=== PATIENT | female | born 1935 | race Caucasian/White ===

== ENCOUNTER → 2016-03-29 | Outpatient (CLI) | payer MEDICARE, BC ==
--- NOTE | 2016-03-31 08:12 | MM ---
Reason for exam: screening (asymptomatic). Last mammogram was performed 1 year and 2 months ago. History: Patient is postmenopausal. Took hormonal contraceptives for 7 years beginning at age 27. Took estrogen for 5 years. Physical Findings: A clinical breast exam by your physician is recommended on an annual basis and results should be correlated with mammographic findings. MG Screening Mammo w CAD Bilateral CC and MLO view(s) were taken. Prior study comparison: January 21, 2015, left breast MG 3d work up w/cad LT. January 15, 2015, bilateral MG screening mammo w CAD. January 14, 2014, bilateral MG screening mammo w CAD. The breast tissue is heterogeneously dense. This may lower the sensitivity of mammography. No significant changes when compared with prior studies. ASSESSMENT: Negative, BI-RAD 1 RECOMMENDATION: Routine screening mammogram of both breasts in 1 year.
== END ==
LOC: RADMAMWWP 14:09
PROVIDERS: ATTEND Family Medicine
DX: Z12.31 Encounter for screening mammogram for malignant neoplasm of breast (principal)

== ENCOUNTER → 2018-09-27 | Outpatient (CLI) | payer MEDICARE ==
--- NOTE | 2018-09-30 13:29 | MM ---
Reason for exam: screening (asymptomatic). Last mammogram was performed 2 years and 6 months ago. History: Patient is postmenopausal. Took hormonal contraceptives for 7 years beginning at age 27. Took estrogen for 5 years. Physical Findings: A clinical breast exam by your physician is recommended on an annual basis and results should be correlated with mammographic findings. MG Screening Mammo w CAD Bilateral CC and MLO view(s) were taken. Prior study comparison: March 29, 2016, bilateral MG screening mammo w CAD. January 21, 2015, left breast MG 3d work up w/cad LT. The breast tissue is heterogeneously dense. This may lower the sensitivity of mammography. No significant changes when compared with prior studies. ASSESSMENT: Benign, BI-RAD 2 RECOMMENDATION: Routine screening mammogram of both breasts in 1 year.
== END | disposition home or self-care (01) ==
LOC: RADMAMWWP 10:51
PROVIDERS: ATTEND Family Medicine
DX: Z12.31 Encounter for screening mammogram for malignant neoplasm of breast (principal)
CPT/HCPCS: 77067

== ENCOUNTER 2020-02-19 07:15 | Observation (INO) | payer MEDICARE ==
[2020-02-19] MEDS ORDERED: ASPIRIN 81 MG PO STA (07:33)
[2020-02-19] MEDS ORDERED: NITROGLYCERIN SL TABS 0.4 MG TAB SUBLINGUAL STA (07:33)
--- NOTE | 2020-02-19 07:35 | ED ---
General Adult HPI - General Chief complaint: Chest Pain Stated complaint: chest pain Time Seen by Provider: 02/19/20 07:22 Source: patient, RN notes reviewed Mode of arrival: ambulatory Limitations: no limitations - History of Present Illness Initial comments: Patient is a pleasant 84-year-old female presenting to the emergency Department with complaints of chest discomfort. Onset of symptoms was yesterday. Patient states it just hurts. Discomfort is somewhat severe. Discomfort does increase somewhat with positions. Discomfort is the sternal region with a little bit of radiation towards the sides. Patient denies back pain or radiation towards the back. No leg pain or leg swelling. No nausea. No diaphoresis. Patient states at times there is mild dyspnea. - Related Data Home Medications Medication Instructions Recorded Confirmed Alendronate Sodium 70 mg PO WE 04/03/15 02/19/20 Brimonidine Tartrate [Alphagan P 1 drop BOTH EYES BID 04/03/15 02/19/20 0.2% Ophth Soln] Calcitonin,[place],Synthetic 1 spray NASAL DAILY 04/03/15 02/19/20 [Miacalcin] Latanoprost [Xalatan 0.005%] 1 drop BOTH EYES HS 04/03/15 02/19/20 Levothyroxine Sodium [Synthroid] 25 mcg PO DAILY 04/03/15 02/19/20 Pravastatin Sodium [Pravachol] 20 mg PO HS 04/03/15 02/19/20 Spironolactone [Aldactone] 25 mg PO DAILY 04/03/15 02/19/20 prednisoLONE ACETATE 1% OPHTH 1 drop BOTH EYES DAILY 04/03/15 02/19/20 [Pred Forte 1%] Mic/D3/Mag11/Zinc/Slitter Operator/Junito/Bor 1 tab PO DAILY 02/19/20 02/19/20 [Caltrate 600+D Plus Tablet] Cholecalciferol [Vitamin D3 (25 1,000 unit PO DAILY 02/19/20 02/19/20 Mcg = 1000 Iu)] Dorzolamide-Timol 2.23%/0.68% 1 drop BOTH EYES BID 02/19/20 02/19/20 [Cosopt] [place] 500 mg PO DAILY 02/19/20 02/19/20 Losartan Potassium 100 mg PO DAILY 02/19/20 02/19/20 Magnesium Oxide 400 mg PO DAILY 02/19/20 02/19/20 Multivitamins, Thera [Multivitamin 1 tab PO DAILY 02/19/20 02/19/20 (formulary)] amLODIPine [Norvasc] 10 mg PO DAILY 02/19/20 02/19/20 Allergies Allergy/AdvReac Type Severity Reaction Status Date / Time No Known Allergies Allergy Verified 02/19/20 08:29 Review of Systems ROS Statement: Those systems with pertinent positive or pertinent negative responses have been documented in the HPI. ROS Other: All systems not noted in ROS Statement are negative. Constitutional: Denies: fever Eyes: Denies: eye pain ENT: Denies: ear pain Respiratory: Denies: cough Cardiovascular: Reports: as per HPI, chest pain Endocrine: Denies: fatigue Gastrointestinal: Denies: abdominal pain Genitourinary: Denies: dysuria Musculoskeletal: Denies: back pain Skin: Denies: rash Neurological: Denies: weakness Past Medical History Past Medical History: Hyperlipidemia, Hypertension, Thyroid Disorder Additional Past Medical History / Comment(s): glaucoma History of Any Multi-Drug Resistant Organisms: None Reported Past Surgical History: Appendectomy Past Psychological History: No Psychological Hx Reported Smoking Status: Former smoker Past Alcohol Use History: None Reported Past Drug Use History: None Reported General Exam Limitations: no limitations General appearance: alert, in no apparent distress Head exam: Present: normocephalic Eye exam: Present: normal appearance Neck exam: Present: normal inspection Respiratory exam: Present: normal lung sounds bilaterally, chest wall tenderness (Mild tenderness lower sternal region) Cardiovascular Exam: Present: regular rate, normal rhythm Expanded Peripheral pulses: 2+: Radial (R), Radial (L), Posterior Tibialis (R), Posterior Tibialis (L) GI/Abdominal exam: Present: soft. Absent: tenderness Extremities exam: Present: normal inspection. Absent: pedal edema, calf tenderness Neurological exam: Present: alert Psychiatric exam: Present: normal affect, normal mood Skin exam: Present: normal color Course Vital Signs 02/19/20 02/19/20 07:19 08:22 Temperature 98.3 F Pulse Rate 87 79 Respiratory 18 18 Rate Blood Pressure 149/88 131/67 O2 Sat by Pulse 97 99 Oximetry EKG Findings - EKG Comments: EKG Findings:: Normal sinus rhythm 86. UT 124. QRS 86. QT 362. QTC 433. Normal axis. Normal QRS. No acute ST change. Medical Decision Making - Medical Decision Making Patient reevaluated and is somewhat improved. Patient updated on results and plan. Dr. Valentin has been paged for admission covering for Dr. Ryan. - Lab Data Result diagrams: 02/19/20 07:44 02/19/20 08:15 Lab Results 02/19/20 02/19/20 02/19/20 Range/Units 07:44 07:44 08:15 WBC 9.0 (3.8-10.6) k/uL RBC 5.06 (3.80-5.40) m/uL Hgb 15.6 (11.4-16.0) gm/dL Hct 45.1 (34.0-46.0) % MCV 89.2 (80.0-100.0) fL MCH 30.8 (25.0-35.0) pg MCHC 34.5 (31.0-37.0) g/dL RDW 12.6 (11.5-15.5) % Plt Count 325 (150-450) k/uL MPV 7.6 Neutrophils % 76 % Lymphocytes % 13 % Monocytes % 7 % Eosinophils % 1 % Basophils % 2 % Neutrophils # 6.8 (1.3-7.7) k/uL Lymphocytes # 1.2 (1.0-4.8) k/uL Monocytes # 0.7 (0-1.0) k/uL Eosinophils # 0.1 (0-0.7) k/uL Basophils # 0.2 (0-0.2) k/uL PT 9.3 (9.0-12.0) sec INR 0.9 (<1.2) APTT 22.9 (22.0-30.0) sec D-Dimer 0.33 (<0.60) mg/L FEU Sodium 131 L (137-145) mmol/L Potassium 4.7 (3.5-5.1) mmol/L Chloride 101 (98-107) mmol/L Carbon Dioxide 24 (22-30) mmol/L Anion Gap 6 mmol/L BUN 10 (7-17) mg/dL Creatinine 0.64 (0.52-1.04) mg/dL Est GFR (CKD-EPI)AfAm >90 (>60 ml/min/1.73 sqM) Est GFR (CKD-EPI)NonAf 81 (>60 ml/min/1.73 sqM) Glucose 123 H (74-99) mg/dL Calcium 9.5 (8.4-10.2) mg/dL Magnesium 2.0 (1.6-2.3) mg/dL Total Bilirubin 0.7 (0.2-1.3) mg/dL AST 23 (14-36) U/L ALT 15 (4-34) U/L Alkaline Phosphatase 88 (38-126) U/L Troponin I (0.000-0.034) ng/mL Total Protein 7.2 (6.3-8.2) g/dL Albumin 4.3 (3.5-5.0) g/dL 02/19/20 Range/Units 08:15 WBC (3.8-10.6) k/uL RBC (3.80-5.40) m/uL Hgb (11.4-16.0) gm/dL Hct (34.0-46.0) % MCV (80.0-100.0) fL MCH (25.0-35.0) pg MCHC (31.0-37.0) g/dL RDW (11.5-15.5) % Plt Count (150-450) k/uL MPV Neutrophils % % Lymphocytes % % Monocytes % % Eosinophils % % Basophils % % Neutrophils # (1.3-7.7) k/uL Lymphocytes # (1.0-4.8) k/uL Monocytes # (0-1.0) k/uL Eosinophils # (0-0.7) k/uL Basophils # (0-0.2) k/uL PT (9.0-12.0) sec INR (<1.2) APTT (22.0-30.0) sec D-Dimer (<0.60) mg/L FEU Sodium (137-145) mmol/L Potassium (3.5-5.1) mmol/L Chloride (98-107) mmol/L Carbon Dioxide (22-30) mmol/L Anion Gap mmol/L BUN (7-17) mg/dL Creatinine (0.52-1.04) mg/dL Est GFR (CKD-EPI)AfAm (>60 ml/min/1.73 sqM) Est GFR (CKD-EPI)NonAf (>60 ml/min/1.73 sqM) Glucose (74-99) mg/dL Calcium (8.4-10.2) mg/dL Magnesium (1.6-2.3) mg/dL Total Bilirubin (0.2-1.3) mg/dL AST (14-36) U/L ALT (4-34) U/L Alkaline Phosphatase (38-126) U/L Troponin I <0.012 (0.000-0.034) ng/mL Total Protein (6.3-8.2) g/dL Albumin (3.5-5.0) g/dL - Radiology Data Radiology results: image reviewed (Chest x-ray shows hyperinflation. No acute process.) Disposition Clinical Impression: Chest pain Disposition: ADMITTED IP TO THIS HOSP Is patient prescribed a controlled substance at d/c from ED?: No Referrals: Emma Ryan DO [Primary Care Provider] - 1-2 days Decision Time: 09:04
[2020-02-19 07:56] LABS: Basophils # (A) 0.2 k/uL (0-0.2); Basophils % (A) 2 %; Eosinophils # (A) 0.1 k/uL (0-0.7); Eosinophils % (A) 1 %; HCT 45.1 % (34.0-46.0); HGB 15.6 gm/dL (11.4-16.0); Lymphocytes # (A) 1.2 k/uL (1.0-4.8); Lymphocytes % (A) 13 %; MCH 30.8 pg (25.0-35.0); MCHC 34.5 g/dL (31.0-37.0); MCV 89.2 fL (80.0-100.0); Mean Platelet Volume 7.6; Monocytes # (A) 0.7 k/uL (0-1.0); Monocytes % (A) 7 %; Neutrophils # (A) 6.8 k/uL (1.3-7.7); Neutrophils % (A) 76 %; Platelet Count 325 k/uL (150-450); RBC 5.06 m/uL (3.80-5.40); RDW 12.6 % (11.5-15.5)
[2020-02-19 08:09] LABS: D-Dimer 0.33 mg/L FEU (<0.60); INR 0.9 (<1.2); Partial Thromboplastin Time 22.9 sec (22.0-30.0); Prothrombin Time 9.3 sec (9.0-12.0)
--- NOTE | 2020-02-19 08:15 | XR ---
EXAMINATION TYPE: XR chest 2V DATE OF EXAM: 02/19/2020 COMPARISON: None HISTORY: 84-year-old female with chest pain TECHNIQUE: PA and lateral views FINDINGS: The cardiomediastinal silhouette and pulmonary vasculature are within normal limits. Atherosclerotic calcifications throughout the thoracic aorta. Mild hyperinflation. Some strandy atelectasis at the le ft base. No consolidation or pleural effusion. Grade 1 retrolisthesis at the thoracolumbar junction l ikely on a degenerative basis. IMPRESSION: Hyperinflation may relate to depth of inspiration or underlying emphysema. Clinically correlate. No a cute process seen.
[2020-02-19 08:36] LABS: ALT 15 U/L (4-34); AST 23 U/L (14-36); African American GFR (CKD) >90 (>60 ml/min/1.73 sqM); Albumin 4.3 g/dL (3.5-5.0); Alkaline Phosphatase 88 U/L (38-126); Anion Gap 6 mmol/L; Blood Urea Nitrogen 10 mg/dL (7-17); Calcium 9.5 mg/dL (8.4-10.2); Carbon Dioxide 24 mmol/L (22-30); Chloride 101 mmol/L (98-107); Glucose 123 mg/dL (74-99); Non-African American GFR(CKD) 81 (>60 ml/min/1.73 sqM); Potassium 4.7 mmol/L (3.5-5.1); Sodium 131 mmol/L (137-145); Total Bilirubin 0.7 mg/dL (0.2-1.3); Total Protein 7.2 g/dL (6.3-8.2)
[2020-02-19] MEDS ORDERED: NITROGLYCERIN SL TABS 0.4 MG TAB SUBLINGUAL PRN (09:04)
[2020-02-19] MEDS ORDERED: ACETAMINOPHEN TAB 325 MG TAB PO PRN (10:32)
[2020-02-19] MEDS ORDERED: IBUPROFEN 400 MG TAB PO STA (10:48)
--- NOTE | 2020-02-19 11:01 | P.CRDCN ---
History of Present Illness Consult date: 02/19/20 History of present illness: CHIEF COMPLAINT: Chest pain HISTORY OF PRESENT ILLNESS: This is 84-year-old female with a past medical history significant for hypertension and hyperlipidemia. Patient does not follow with a information assurance. We have been asked to see the patient in consultation for chest pain. Patient examined this morning at the bedside in the observation unit. Patient states she began having some chest discomfort yesterday. When asked where her pain was patient is pointing near her xiphoid process. The pa tient does have tenderness with palpation of the lower sternal region. She states the pain did not radiate anywhere. She states the pain is worse with deep inspiration. She states she has some associated shortness of breath with the pain. She states she did not sleep much last night because the pain was worse when she laid on her back or on her right side so she spent most of the night awake. DIAGNOSTICS: EKG reveals sinus rhythm without acute signs of ischemia Chest xray hyperinflation may relate to depth of inspiration or underlying emphysema. No acute process seen. Laboratory data: WBC 9.0. Hemoglobin 15.6. Platelet count 325. D-dimer 0.33. Sodium 131. Potassium 4.7. BUN 10. Creatinine 0.64. Magnesium 2.0. Troponin negative 1. Current home cardiac medications include Norvasc 10 mg daily, spironolactone 25 mg daily, pravastatin 20 mg daily, and losartan 100 mg daily REVIEW OF SYSTEMS: At the time of my exam: CONSTITUTIONAL: Denies fever or chills. HEENT: Denies blurred vision, vision changes, or eye pain. Denies hemoptysis CARDIOVASCULAR: Denies chest pain, orthopnea, PND or palpitations RESPIRATORY: No shortness of breath. GASTROINTESTINAL: Denies abdominal pain. Denies nausea or vomiting. HEMATOLOGIC: Denies bleeding disorders. GENITOURINARY: Denies any blood in urine. SKIN: Denies pruitis. Denies rash. PHYSICAL EXAM: VITAL SIGNS: Reviewed. GENERAL: Well-developed in no acute distress. HEENT: Head is normocephalic. Pupils are equal, round. Sclerae anicteric. Mucous membranes of the mouth are moist. Neck supple. No JVD or thyromegaly LUNGS: Respirations even and unlabored. Lungs essentially clear to auscultation bilaterally. HEART: Regular rate and rhythm. S1 and S2 heard. Patient with discomfort upon palpation of mid lower region of chest wall. ABDOMEN: Soft. Nondistended. Nontender. EXTREMITIES: Normal range of motion. No clubbing or cyanosis. Peripheral pulses intact. No lower extremity edema NEUROLOGIC: Awake and alert. Oriented x 3. ASSESSMENT: Chest pain, atypical and reproducible Hypertension Hyperlipidemia Hypothyroidism Remote history of nicotine dependence PLAN: Continue to trend troponin levels Obtain 2-D echo to assess cardiac structure and function Resume home cardiac medications Further recommendations pending patient's course Nurse practitioner note has been reviewed by physician. Signing provider agrees with the documented findings, assessment, and plan of care. Past Medical History Past Medical History: Hyperlipidemia, Hypertension, Thyroid Disorder Additional Past Medical History / Comment(s): glaucoma History of Any Multi-Drug Resistant Organisms: None Reported Past Surgical History: Appendectomy Past Anesthesia/Blood Transfusion Reactions: No Reported Reaction Past Psychological History: No Psychological Hx Reported Smoking Status: Former smoker Past Alcohol Use History: None Reported Past Drug Use History: None Reported Medications and Allergies Home Medications Medication Instructions Recorded Confirmed Type Alendronate Sodium 70 mg PO WE 04/03/15 02/19/20 History Brimonidine Tartrate [Alphagan P 1 drop BOTH EYES BID 04/03/15 02/19/20 History 0.2% Ophth Soln] Calcitonin,[place],Synthetic 1 spray NASAL DAILY 04/03/15 02/19/20 History [Miacalcin] Latanoprost [Xalatan 0.005%] 1 drop BOTH EYES HS 04/03/15 02/19/20 History Levothyroxine Sodium [Synthroid] 25 mcg PO DAILY 04/03/15 02/19/20 History Pravastatin Sodium [Pravachol] 20 mg PO HS 04/03/15 02/19/20 History Spironolactone [Aldactone] 25 mg PO DAILY 04/03/15 02/19/20 History prednisoLONE ACETATE 1% OPHTH 1 drop BOTH EYES DAILY 04/03/15 02/19/20 History [Pred Forte 1%] Mic/D3/Mag11/Zinc/Route Delivery Driver/Junito/Bor 1 tab PO DAILY 02/19/20 02/19/20 History [Caltrate 600+D Plus Tablet] Cholecalciferol [Vitamin D3 (25 1,000 unit PO DAILY 02/19/20 02/19/20 History Mcg = 1000 Iu)] Dorzolamide-Timol 2.23%/0.68% 1 drop BOTH EYES BID 02/19/20 02/19/20 History [Cosopt] [place] 500 mg PO DAILY 02/19/20 02/19/20 History Losartan Potassium 100 mg PO DAILY 02/19/20 02/19/20 History Magnesium Oxide 400 mg PO DAILY 02/19/20 02/19/20 History Multivitamins, Thera [Multivitamin 1 tab PO DAILY 02/19/20 02/19/20 History (formulary)] amLODIPine [Norvasc] 10 mg PO DAILY 02/19/20 02/19/20 History Allergies Allergy/AdvReac Type Severity Reaction Status Date / Time No Known Allergies Allergy Verified 02/19/20 08:29 Physical Exam Vitals: Vital Signs Temp Pulse Pulse Resp BP BP Pulse Ox 02/19/20 10:21 86 16 02/19/20 09:42 97.7 F 86 16 165/72 97 02/19/20 09:20 98 F 85 18 152/71 99 02/19/20 08:22 79 18 131/67 99 02/19/20 07:19 98.3 F 87 18 149/88 97 Intake and Output 02/18/20 02/19/20 02/19/20 22:59 06:59 14:59 Other: Voiding Method Toilet Weight 58.513 kg Results 02/19/20 07:44 02/19/20 08:15 Cardiac Enzymes 02/19/20 02/19/20 Range/Units 08:15 08:15 AST 23 (14-36) U/L Troponin I <0.012 (0.000-0.034) ng/mL Coagulation 02/19/20 Range/Units 07:44 PT 9.3 (9.0-12.0) sec APTT 22.9 (22.0-30.0) sec CBC 02/19/20 Range/Units 07:44 WBC 9.0 (3.8-10.6) k/uL RBC 5.06 (3.80-5.40) m/uL Hgb 15.6 (11.4-16.0) gm/dL Hct 45.1 (34.0-46.0) % Plt Count 325 (150-450) k/uL Comprehensive Metabolic Panel 02/19/20 Range/Units 08:15 Sodium 131 L (137-145) mmol/L Potassium 4.7 (3.5-5.1) mmol/L Chloride 101 (98-107) mmol/L Carbon Dioxide 24 (22-30) mmol/L BUN 10 (7-17) mg/dL Creatinine 0.64 (0.52-1.04) mg/dL Glucose 123 H (74-99) mg/dL Calcium 9.5 (8.4-10.2) mg/dL AST 23 (14-36) U/L ALT 15 (4-34) U/L Alkaline Phosphatase 88 (38-126) U/L Total Protein 7.2 (6.3-8.2) g/dL Albumin 4.3 (3.5-5.0) g/dL Current Medications Generic Name Dose Route Start Last Admin Trade Name Freq PRN Reason Stop Dose Admin Acetaminophen 650 mg 02/19/20 10:32 Acetaminophen Tab 325 Mg Tab PO Q6HR PRN Fever and/ or Pain Aspirin 325 mg 02/20/20 09:00 Aspirin 325 Mg Tab PO DAILY TWIN Nitroglycerin 0.4 mg 02/19/20 09:04 Nitroglycerin Sl Tabs 0.4 Mg Tab SUBLINGUAL Q5M PRN Chest Pain Nitroglycerin 0.5 inch 02/19/20 12:00 Nitroglycerin Oint 1 Inch/Gm Packet TOPICAL Q6HR TWIN Pantoprazole Sodium 40 mg 02/19/20 11:00 Pantoprazole 40 Mg/10 Ml Vial IVP DAILY TWIN Sodium Chloride 10 ml 02/19/20 21:00 Sodium Chloride 0.9% Flush 10 Ml Syringe IV BID TWIN Intake and Output 02/18/20 02/19/20 02/19/20 22:59 06:59 14:59 Other: Voiding Method Toilet Weight 58.513 kg Patient Weight 02/20/20 06:59 Weight 58.513 kg 02/19/20 07:44 02/19/20 08:15
[2020-02-19] MEDS: LEVOTHYROXINE 25 MCG TAB PO SCH (11:23)
[2020-02-19] MEDS: BRIMONIDINE TARTRATE 0.2% DROPS 5 ML BTL BOTH EYES SCH ×2 (11:23→20:50)
[2020-02-19] MEDS: LOSARTAN 50 MG TAB PO SCH (11:23)
[2020-02-19] MEDS: DORZOLAMIDE-TIMOLOL 2.23%/0.68 10ML BTL BOTH EYES SCH ×2 (11:23→20:49)
[2020-02-19] MEDS: SPIRONOLACTONE 25 MG TAB PO SCH (11:24)
[2020-02-19] MEDS: prednisoLONE ACETATE 1% OPHTH DROPS 5 ML BTL BOTH EYES SCH (11:24)
[2020-02-19] MEDS: MAGNESIUM OXIDE 400 MG TAB PO SCH (11:24)
[2020-02-19] MEDS: PANTOPRAZOLE 40 MG/10 ML VIAL IVP SCH (11:27)
--- NOTE | 2020-02-19 11:36 | ECHOF ---
Referral Reason:chest pain MEASUREMENTS -------- HEIGHT: 157.5 cm WEIGHT: 58.5 kg BP: RVIDd: 2.6 cm (< 3.3) IVSd: 1.1 cm (0.6 - 1.1) LVIDd: 2.7 cm (3.9 - 5.3) LVPWd: 1.3 cm (0.6 - 1.1) IVSs: 1.8 cm LVIDs: 1.1 cm LVPWs: 1.4 cm LAESV Index (A-L): 22.34 ml/m Ao Diam: 2.0 cm (2.0 - 3.7) AV Cusp: 1.3 cm (1.5 - 2.6) LA Diam: 2.7 cm (2.7 - 3.8) MV EXCURSION: 13.883 mm (> 18.000) MV EF SLOPE: 59 mm/s (70 - 150) EPSS: 1.1 cm MV E Александр: 0.97 m/s MV DecT: 222 ms MV A Александр: 1.41 m/s MV E/A Ratio: 0.68 AV maxP.35 mmHg AV meanP.72 mmHg RAP: 5.00 mmHg RVSP: 32.02 mmHg FINDINGS -------- Sinus rhythm. This was a technically adequate study. The left ventricular size is normal. There is mild concentric left ventricular hypertrophy. Overa ll left ventricular systolic function is normal with, an EF between 55 - 60 %. The right ventricle is normal in size. Normal LA size by volume 22+/-6 ml/m2. The right atrial size is normal. There is mild aortic valve sclerosis. There is mild aortic stenosis present. Peak/mean gradient a cross the Aortic Valve is 14.35mmHg / 7.72mmHg. Mild mitral annular calcification present. Mild mitral regurgitation is present. The tricuspid valve appears structurally normal. Mild tricuspid regurgitation present. Right vent ricular systolic pressure is normal at < 35 mmHg. There is no pulmonic regurgitation present. The aortic root size is normal. Normal inferior vena cava with normal inspiratory collapse consistent with estimated right atrial pre ssure of 5 mmHg. There is a small, generalized pericardial effusion present. CONCLUSIONS -------- 1. There is mild concentric left ventricular hypertrophy. 2. Overall left ventricular systolic function is normal with, an EF between 55 - 60 %. 3. Normal LA size by volume 22+/-6 ml/m2. 4. There is mild aortic stenosis present. 5. Peak/mean gradient across the Aortic Valve is 14.35mmHg / 7.72mmHg. 6. Mild mitral regurgitation is present. 7. Mild tricuspid regurgitation present. 8. There is a small, generalized pericardial effusion present. RURAL SERVICE ENGINEER: Desire Cali RDCS
[2020-02-19] MEDS ORDERED: NITROGLYCERIN OINT 1 INCH/GM PACKET TOPICAL SCH (12:00)
[2020-02-19] MEDS ORDERED: LATANOPROST 0.005% OPHTH DROPS 2.5 ML BTL BOTH EYES SCH (21:00)
[2020-02-19] MEDS ORDERED: PRAVASTATIN SODIUM 20 MG TAB PO SCH (21:00)
[2020-02-19 23:42] VITALS: RESP 18
[2020-02-20 05:40] LABS: Cholesterol 179 mg/dL (<200); HDL Cholesterol 50 mg/dL (40-60); LDL Cholesterol,Calculated 105 mg/dL (0-99); Triglycerides 118 mg/dL (<150)
[2020-02-20] MEDS: LEVOTHYROXINE 25 MCG TAB PO SCH (05:57)
[2020-02-20 08:48] VITALS: BP 143/69; PULSE 97; TEMP 98
[2020-02-20] MEDS ORDERED: amLODIPine 10 MG TAB PO SCH (09:00)
[2020-02-20] MEDS ORDERED: ASPIRIN 81 MG PO SCH (09:00)
[2020-02-20] MEDS ORDERED: CHOLECALCIFEROL 1,000 UNIT TAB PO SCH (09:00)
[2020-02-20] MEDS ORDERED: ASPIRIN 325 MG TAB PO SCH (09:00)
[2020-02-20] MEDS ORDERED: CALCIUM CARB-VIT D 500MG-200UN 1 EACH TAB PO SCH (09:00)
[2020-02-20] MEDS ORDERED: MULTIVITAMINS, THERA 1 EACH TAB PO SCH (09:00)
--- NOTE | 2020-02-20 09:29 | PN ---
PROGRESS NOTE Mrs. Ryan is an 84-year-old female who presented with localized chest discomfort, she is feeling better today. Some of the discomfort is still there, but the same pattern, respirophasic and positional. She denies any dizziness or palpitation. She denies any nausea. Hemodynamically, she is stable. She continues to be in sinus mechanism. MEDICATION: At this time includes aspirin 81 mg daily, losartan 100 mg daily, pravastatin 20 mg daily, spironolactone 25 mg daily. PHYSICAL EXAMINATION: Blood pressure 136/70 with a heart rate in the 80s. LUNGS: Clear. HEART: Regular rate and rhythm, S1, S2. No S3. No rub with a reproducible chest discomfort. ABDOMEN: Soft, nontender. EXTREMITIES: No edema. LAB DATA: Revealed BUN and creatinine 10 and 0.64. Troponin less than 0.012. Her echocardiogram revealed normal left ventricular size and systolic function. IMPRESSION: 1. Chest discomfort, atypical for ischemic heart disease, appears to be noncardiac. 2. History of hypertension. 3. History of hyperlipidemia. RECOMMENDATION: From the cardiac standpoint, the patient is stable. I would expect she should be able to be discharged home soon. MMODL / IJN: [id number] /
[2020-02-20] MEDS: PANTOPRAZOLE 40 MG/10 ML VIAL IVP SCH (09:48)
[2020-02-20] MEDS: SPIRONOLACTONE 25 MG TAB PO SCH (09:49)
[2020-02-20] MEDS: LOSARTAN 50 MG TAB PO SCH (09:49)
[2020-02-20] MEDS: MAGNESIUM OXIDE 400 MG TAB PO SCH (09:49)
[2020-02-20] MEDS: BRIMONIDINE TARTRATE 0.2% DROPS 5 ML BTL BOTH EYES SCH (09:49)
[2020-02-20] MEDS: prednisoLONE ACETATE 1% OPHTH DROPS 5 ML BTL BOTH EYES SCH (09:50)
[2020-02-20] MEDS: DORZOLAMIDE-TIMOLOL 2.23%/0.68 10ML BTL BOTH EYES SCH (09:50)
--- NOTE | 2020-02-23 09:16 | P.HPIM ---
History of Present Illness H&P Date: 02/19/20 Chief Complaint: chest pain Annalee Ryan is an 84 yo F with PMH significant for HTN and HLD who presented to the ED complaining of chest discomfort. She reports last night when she lay down to sleep she began to experience a burning type upper abdominal and lower chest discomfort with some associated shortness of breath. Pain is worse with inspiration and does not radiate. She denies any diaphoresis or palpitations. Pt is a former smoker. On presentation, vitals stable, EKG wnl, trop negative x3 and labs unremarkable. Review of Systems All systems: negative Constitutional: Denies chills, Denies fever Eyes: denies blurred vision, denies pain Ears, nose, mouth and throat: Denies headache, Denies sore throat Cardiovascular: Reports chest pain, Denies shortness of breath Respiratory: Denies cough Gastrointestinal: Denies abdominal pain, Denies diarrhea, Denies nausea, Denies vomiting Genitourinary: Denies dysuria, Denies hematuria Musculoskeletal: Denies myalgias Integumentary: Denies pruritus, Denies rash Neurological: Denies numbness, Denies weakness Psychiatric: Denies anxiety, Denies depression Endocrine: Denies fatigue, Denies weight change Past Medical History Past Medical History: Hyperlipidemia, Hypertension, Thyroid Disorder Additional Past Medical History / Comment(s): glaucoma History of Any Multi-Drug Resistant Organisms: None Reported Past Surgical History: Appendectomy Past Anesthesia/Blood Transfusion Reactions: No Reported Reaction Past Psychological History: No Psychological Hx Reported Smoking Status: Former smoker Past Alcohol Use History: None Reported Past Drug Use History: None Reported Medications and Allergies Home Medications Medication Instructions Recorded Confirmed Type Alendronate Sodium 70 mg PO WE 04/03/15 02/19/20 History Brimonidine Tartrate [Alphagan P 1 drop BOTH EYES BID 04/03/15 02/19/20 History 0.2% Ophth Soln] Calcitonin,[place],Synthetic 1 spray NASAL DAILY 04/03/15 02/19/20 History [Miacalcin] Latanoprost [Xalatan 0.005%] 1 drop BOTH EYES HS 04/03/15 02/19/20 History Levothyroxine Sodium [Synthroid] 25 mcg PO DAILY 04/03/15 02/19/20 History Pravastatin Sodium [Pravachol] 20 mg PO HS 04/03/15 02/19/20 History Spironolactone [Aldactone] 25 mg PO DAILY 04/03/15 02/19/20 History prednisoLONE ACETATE 1% OPHTH 1 drop BOTH EYES DAILY 04/03/15 02/19/20 History [Pred Forte 1%] Mic/D3/Mag11/Zinc/Cooperative Education Coordinator/[place]/Bor 1 tab PO DAILY 02/19/20 02/19/20 History [Caltrate 600+D Plus Tablet] Cholecalciferol [Vitamin D3 (25 1,000 unit PO DAILY 02/19/20 02/19/20 History Mcg = 1000 Iu)] Dorzolamide-Timol 2.23%/0.68% 1 drop BOTH EYES BID 02/19/20 02/19/20 History [Cosopt] [place] 500 mg PO DAILY 02/19/20 02/19/20 History Losartan Potassium 100 mg PO DAILY 02/19/20 02/19/20 History Magnesium Oxide 400 mg PO DAILY 02/19/20 02/19/20 History Multivitamins, Thera [Multivitamin 1 tab PO DAILY 02/19/20 02/19/20 History (formulary)] amLODIPine [Norvasc] 10 mg PO DAILY 02/19/20 02/19/20 History Allergies Allergy/AdvReac Type Severity Reaction Status Date / Time No Known Allergies Allergy Verified 02/19/20 08:29 Physical Exam General: well nourished, well developed, NAD. Vitals reviewed Eyes: PERRL, EOMI, conjunctiva normal HENT: normocephalic, mucus membranes moist Neck: supple, no JVD Lungs: normal respiratory effort, no wheezes or rales CV: Regular rate and rhythm, no murmur. Peripheral pulses 2+ Abdomen: soft, nondistended, no organomegaly Lymph: no cervical or axillary LAD Skin: warm and dry. Neuro: A&Ox3, normal mood and affect Results CBC & Chem 7: 02/19/20 07:44 02/19/20 08:15 Thrombosis Risk Factor Assmnt - Choose All That Apply Any of the Below Risk Factors Present?: No Other Risk Factors: Yes Each Risk Factor Represents 3 Points: Age 75 years or older Other congenital or acquired thrombophilia - If yes, enter type in comment: No Thrombosis Risk Factor Assessment Total Risk Factor Score: 3 Thrombosis Risk Factor Assessment Level: Moderate Risk Assessment and Plan (1) Hypertension Status: Acute Code(s): I10 - ESSENTIAL (PRIMARY) HYPERTENSION SNOMED Code(s): 04175019 (2) Combined hyperlipidemia Status: Acute Code(s): E78.2 - MIXED HYPERLIPIDEMIA SNOMED Code(s): 471981495 (3) Chest pain Status: Acute Code(s): R07.9 - CHEST PAIN, UNSPECIFIED SNOMED Code(s): 99709192 Plan: 1. Chest pain. ACS ruled out. Cardiology consulted for further evaluation. Control BP 2. HTN. Continue losartan and norvasc 3. HLD. Continue statin 4. Hypothyroidism. Continue synthroid
--- NOTE | 2020-02-23 09:17 | P.DS ---
Providers Date of admission: 02/19/20 09:04 Expected date of discharge: 02/20/20 Attending physician: Keagan Valentin MD Consults: 02/19/20 09:04 Consult Physician Urgent Consulting Provider: Rober Hatch Consult Reason/Comments: cp Do you want consulting provider notified?: Yes Primary care physician: Emma Ryan - Discharge Diagnosis(es) (1) Hypertension Status: Acute (2) Combined hyperlipidemia Status: Acute (3) Chest pain Status: Acute Hospital Course: Annalee Ryan is an 84 yo F with PMH significant for HTN and HLD who presented to the ED complaining of chest discomfort. She reports last night when she lay down to sleep she began to experience a burning type upper abdominal and lower chest discomfort with some associated shortness of breath. Pain is worse with inspiration and does not radiate. She denies any diaphoresis or palpitations. Pt is a former smoker. On presentation, vitals stable, EKG wnl, trop negative x3 and labs unremarkable. Pt was admitted to medicine and seen by Cardiology. She underwent echocardiogram which showed mild LVH, normal LVEF and no wall motion abnormalities. Her chest pain did completely resolve while she was in the hospital. She is discharged in stable condition and recommended to follow up with her PCP. Patient Condition at Discharge: Stable Plan - Discharge Summary Discharge Rx Participant: No New Discharge Prescriptions: Continue Pravastatin Sodium [Pravachol] 20 mg PO HS Spironolactone [Aldactone] 25 mg PO DAILY Levothyroxine Sodium [Synthroid] 25 mcg PO DAILY Calcitonin,[place],Synthetic [Miacalcin] 1 spray NASAL DAILY Alendronate Sodium 70 mg PO WE Latanoprost [Xalatan 0.005%] 1 drop BOTH EYES HS Brimonidine Tartrate [Alphagan P 0.2% Ophth Soln] 1 drop BOTH EYES BID prednisoLONE ACETATE 1% OPHTH [Pred Forte 1%] 1 drop BOTH EYES DAILY amLODIPine [Norvasc] 10 mg PO DAILY Dorzolamide-Timol 2.23%/0.68% [Cosopt] 1 drop BOTH EYES BID Losartan Potassium 100 mg PO DAILY Multivitamins, Thera [Multivitamin (formulary)] 1 tab PO DAILY Mic/D3/Mag11/Zinc/Data [employer] Software Consultant/Junito/Bor [Caltrate 600+D Plus Tablet] 1 tab PO DAILY Magnesium Oxide 400 mg PO DAILY Cholecalciferol [Vitamin D3 (25 Mcg = 1000 Iu)] 1,000 unit PO DAILY [place] 500 mg PO DAILY Discharge Medication List Alendronate Sodium 70 mg PO WE 04/03/15 [History] Brimonidine Tartrate [Alphagan P 0.2% Ophth Soln] 1 drop BOTH EYES BID 04/03/15 [History] Calcitonin,[facility],Synthetic [Miacalcin] 1 spray NASAL DAILY 04/03/15 [History] Latanoprost [Xalatan 0.005%] 1 drop BOTH EYES HS 04/03/15 [History] Levothyroxine Sodium [Synthroid] 25 mcg PO DAILY 04/03/15 [History] Pravastatin Sodium [Pravachol] 20 mg PO HS 04/03/15 [History] Spironolactone [Aldactone] 25 mg PO DAILY 04/03/15 [History] prednisoLONE ACETATE 1% OPHTH [Pred Forte 1%] 1 drop BOTH EYES DAILY 04/03/15 [History] Mic/D3/Mag11/Zinc/[employer] Software Consultant/[place]/Bor [Caltrate 600+D Plus Tablet] 1 tab PO DAILY 02/19/20 [History] Cholecalciferol [Vitamin D3 (25 Mcg = 1000 Iu)] 1,000 unit PO DAILY 02/19/20 [History] Dorzolamide-Timol 2.23%/0.68% [Cosopt] 1 drop BOTH EYES BID 02/19/20 [History] [place] 500 mg PO DAILY 02/19/20 [History] Losartan Potassium 100 mg PO DAILY 02/19/20 [History] Magnesium Oxide 400 mg PO DAILY 02/19/20 [History] Multivitamins, Thera [Multivitamin (formulary)] 1 tab PO DAILY 02/19/20 [History] amLODIPine [Norvasc] 10 mg PO DAILY 02/19/20 [History] Follow up Appointment(s)/Referral(s): Maximus Alston MD [STAFF PHYSICIAN] - 02/27/20 11:15 am Emma Ryan DO [Primary Care Provider] - 1-2 days Discharge Disposition: HOME SELF-CARE
== END 2020-02-20 11:15 | disposition home or self-care (01) ==
LOC: EC 07:15 → 1SOBS 09:04
PROVIDERS: ADMIT Family Medicine; ATTEND Family Medicine
DX: R07.89 Other chest pain (principal); R10.10 Upper abdominal pain, unspecified; R06.02 Shortness of breath; I11.9 Hypertensive heart disease without heart failure; E78.2 Mixed hyperlipidemia; E03.9 Hypothyroidism, unspecified; H40.9 Unspecified glaucoma; R91.8 Other nonspecific abnormal finding of lung field; Z79.899 Other long term (current) drug therapy; Z79.890 Hormone replacement therapy; Z79.52 Long term (current) use of systemic steroids; Z90.49 Acquired absence of other specified parts of digestive tract; Z87.891 Personal history of nicotine dependence
CPT/HCPCS: 93005 ×2; 96374; 96376; 99285; 36415; 93306; 85379; 80061; 80053; 83735; 84484; 85025; 85610; 85730; 71046; G0378 ×2; C9113 ×2